=== PATIENT | male | born 1990 | race Caucasian/White ===

== ENCOUNTER 2017-06-16 19:54 | Emergency (ER) | payer OTHER, BC ==
[2017-06-16 19:56] VITALS: BP 132/84; PULSE 78; RESP 16; TEMP 98.2; O2SAT 98
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
[2017-06-16] MEDS ORDERED: ORPHENADRINE INJ 60 MG/2 ML AMP IM ONE (21:00)
[2017-06-16] MEDS ORDERED: KETOROLAC TROMETHAMINE 60 MG/2 ML (IM) VIAL IM ONE (21:00)
[2017-06-16 22:50] VITALS: RESP 18
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
[2017-06-16] MEDS ORDERED: BACL10TA PO (23:18)
[2017-06-16] MEDS ORDERED: IBUP800T23 PO (23:18)
== END 2017-06-16 23:33 | disposition home or self-care (01) ==
LOC: NEPK 19:54
DX: S39.012A Strain of muscle, fascia and tendon of lower back, initial encounter (principal); S80.211A Abrasion, right knee, initial encounter; S80.10XA Contusion of unspecified lower leg, initial encounter; V47.5XXA Car driver injured in collision with fixed or stationary object in traffic accident, initial encounter; Y92.410 Unspecified street and highway as the place of occurrence of the external cause
CPT/HCPCS: 73564; 73590; 96372; 99284; J1885; J2360

== ENCOUNTER 2017-10-14 18:34 | Emergency (ER) | payer BC ==
[~2017-10-14 18:34] MED LIST: BACL10TA PO; IBUP1TAB7 PO
[2017-10-14 18:36] VITALS: BP 118/78; PULSE 111; RESP 14; TEMP 99.8; O2SAT 96
[2017-10-14 18:57] VITALS: BP 121/74; PULSE 84; RESP 14; TEMP 98.6; O2SAT 96
--- NOTE | 2017-10-14 19:36 | PD ---
HPI Chief Complaint: Abdominal Pain Time Seen by Provider: 19:25 Travel History International Travel<30 days: No Contact w/Intl Traveler<30days: No Traveled to known affect area: No History of Present Illness HPI 26-year-old male presents for evaluation of abdominal pain, nausea, vomiting. He reports that woke up this morning with primarily right sided lower/upper/ epigastric abdominal pain which is sharp, constant, associated with multiple boluses of nonbloody emesis, some watery diarrhea as well. He endorses chills and myalgias. He denies dysuria, testicular or scrotal pain, flank pain. He does report that he has had back pain for several months and seems to be worse today as well. He denies cough, congestion, sore throat. He reports that he lives in [place] but works in [employer] [facility], traveled here from [place] [facility] [facility] this morning. He denies any dietary changes, new medications or recent antibiotic use. He reports that yesterday he ate 4 tacos and some milk and this is a typical diet for him. No history of abdominal surgeries. No other complaints. [facility] Past Medical History Medical History: Denies Significant Hx Immunizations Current: Yes Tetanus Vaccination: < 5 Years Influenza Vaccination: No Past Surgical History Surgical History: No Previous Surgery Social History Alcohol Use: Yes (rare) Tobacco Use: Yes (rare) Substance Use: No Allergies-Medications (Allergen,Severity, Reaction): Coded Allergies: No Known Allergies (Verified , 06/16/17) Reported Meds & Prescriptions Reported Meds & Active Scripts Active Naproxen 500 Mg Tab 500 Mg PO BID 7 Days Zofran (Ondansetron HCl) 4 Mg Tab 4 Mg PO Q6HR PRN Baclofen 10 Mg Tab 10 Mg PO Q8HR PRN 7 Days Ibuprofen 800 Mg Tab 800 Mg PO Q6HR PRN Review of Systems Except as stated in HPI: all other systems reviewed are Neg Physical Exam Narrative GENERAL: Well-developed well-nourished male who appears uncomfortable on initial examination. SKIN: Warm and dry. HEAD: Atraumatic. Normocephalic. EYES: Pupils equal and round. No scleral icterus. No injection or drainage. ENT: No nasal bleeding or discharge. Mucous membranes pink and moist. NECK: Trachea midline. No JVD. CARDIOVASCULAR: Regular rate and rhythm. No murmur appreciated. RESPIRATORY: No accessory muscle use. Clear to auscultation. Breath sounds equal bilaterally. GASTROINTESTINAL: Abdomen soft, there is tenderness to palpation in the epigastrium, right upper quadrant and right lower quadrant without guarding. There is no CVA tenderness. MUSCULOSKELETAL: No obvious deformities. No clubbing. No cyanosis. No edema. NEUROLOGICAL: Awake and alert. No obvious cranial nerve deficits. Motor grossly within normal limits. Normal speech. PSYCHIATRIC: Appropriate mood and affect; insight and judgment normal. Data Data Last Documented VS Vital Signs Date Time Temp Pulse Resp B/P (MAP) Pulse Ox O2 Delivery O2 Flow Rate FiO2 10/14/17 18:57 98.6 84 14 121/74 (90) 96 Room Air Orders Orders Complete Blood Count With Diff (10/14/17 19:33) Comprehensive Metabolic Panel (10/14/17 19:33) Lipase (10/14/17 19:33) Urinalysis - C+S If Indicated (10/14/17 19:33) Ct Abd/Pel W Iv Contrast(Rout) (10/14/17 19:33) Iv Access Insert/Monitor (10/14/17 19:33) Ecg Monitoring (10/14/17 19:33) Oximetry (10/14/17 19:33) Ondansetron Inj (Zofran Inj) (10/14/17 19:45) Sodium Chlor 0.9% 1000 Ml Inj (Ns 1000 M (10/14/17 19:33) Sodium Chloride 0.9% Flush (Ns Flush) (10/14/17 19:45) Iohexol 350 Inj (Omnipaque 350 Inj) (10/14/17 20:34) Pantoprazole Inj (Protonix Inj) (10/14/17 21:15) Dicyclomine Inj (Bentyl Inj) (10/14/17 21:15) Ketorolac Inj (Toradol Inj) (10/14/17 21:15) Al-Mag Hy-Si 40-40-4 Mg/Ml Liq (Mag-Al P (10/14/17 21:15) Lidocaine 2% Viscous (Xylocaine 2% Visco (10/14/17 21:15) Ed Discharge Order (10/14/17 21:50) Labs Laboratory Tests Test 10/14/17 20:00 10/14/17 20:54 White Blood Count 15.5 TH/MM3 Red Blood Count 5.47 MIL/MM3 Hemoglobin 16.7 GM/DL Hematocrit 49.4 % Mean Corpuscular Volume 90.4 FL Mean Corpuscular Hemoglobin 30.5 PG Mean Corpuscular Hemoglobin Concent 33.7 % Red Cell Distribution Width 13.8 % Platelet Count 317 TH/MM3 Mean Platelet Volume 8.4 FL Neutrophils (%) (Auto) 92.1 % Lymphocytes (%) (Auto) 2.7 % Monocytes (%) (Auto) 4.9 % Eosinophils (%) (Auto) 0.2 % Basophils (%) (Auto) 0.1 % Neutrophils # (Auto) 14.3 TH/MM3 Lymphocytes # (Auto) 0.4 TH/MM3 Monocytes # (Auto) 0.8 TH/MM3 Eosinophils # (Auto) 0.0 TH/MM3 Basophils # (Auto) 0.0 TH/MM3 CBC Comment DIFF FINAL Differential Comment Blood Urea Nitrogen 12 MG/DL Creatinine 0.99 MG/DL Random Glucose 96 MG/DL Total Protein 9.0 GM/DL Albumin 4.3 GM/DL Calcium Level 8.8 MG/DL Alkaline Phosphatase 84 U/L Aspartate Amino Transf (AST/SGOT) 33 U/L Alanine Aminotransferase (ALT/SGPT) 29 U/L Total Bilirubin 1.2 MG/DL Sodium Level 136 MEQ/L Potassium Level 4.6 MEQ/L Chloride Level 104 MEQ/L Carbon Dioxide Level 24.5 MEQ/L Anion Gap 8 MEQ/L Estimat Glomerular Filtration Rate 92 ML/MIN Lipase 134 U/L Urine Color YELLOW Urine Turbidity CLEAR Urine pH 6.0 Urine Specific [place] GREATER THAN 1.050 Urine Protein TRACE mg/dL Urine Glucose (UA) NEG mg/dL Urine Ketones 10 mg/dL Urine Occult Blood NEG Urine Nitrite NEG Urine Bilirubin NEG Urine Urobilinogen LESS THAN 2.0 MG/DL Urine Leukocyte Esterase NEG Urine RBC LESS THAN 1 /hpf Urine WBC LESS THAN 1 /hpf Urine Squamous Epithelial Cells 1 /hpf Urine Mucus FEW /lpf Microscopic Urinalysis Comment CULT NOT INDICATED MDM Medical Decision Making Medical Screen Exam Complete: Yes Emergency Medical Condition: Yes Medical Record Reviewed: Yes Differential Diagnosis Gastroenteritis, gastritis, pancreatitis, biliary colic, cholecystitis, colitis , diverticulitis, appendicitis, pyelonephritis Narrative Course 26-year-old male with one-day history of chills, abdominal pain, nausea, vomiting, diarrhea. On examination he has diffuse tenderness, particularly on the right side of his abdomen. Plan is to receive lab work, CT abdomen and pelvis, urinalysis. He was given IV fluids, Zofran, Toradol, GI cocktail, Bentyl, Protonix. Laboratory notable for WBC, 15.5, total bilirubin 1.2, 10 ketones on urinalysis. Lab work is otherwise unremarkable. CT abdomen and pelvis is unremarkable. Upon reexamination the patient is feeling significantly improved. Toradol helped with his back pain. Suspect gastroenteritis. The patient will be discharged with a short course of naproxen for his chronic back pain as well as Zofran for his nausea. Discussed signs and symptoms that would warrant returning to the emergency room. He is stable for discharge. Diagnosis Primary Impression: Gastroenteritis Additional Instructions: Slowly advance diet as tolerated. Medication as prescribed. Return for any acutely new or worsening symptoms. Med/Other Pt SpecificInfo: Prescription(s) given Scripts Naproxen (Naproxen) 500 Mg Tab 500 MG PO BID for 7 Days, #14 TAB 0 Refills Prov: Herlinda Keen MD 10/14/17 Ondansetron (Zofran) 4 Mg Tab 4 MG PO Q6HR Y for NAUSEA OR VOMITING, #20 TAB 0 Refills Prov: Herlinda Keen MD 10/14/17 Disposition: 01 DISCHARGE HOME Condition: Stable Nabil Montero Oct 14, 2017 19:36
[2017-10-14] MEDS ORDERED: SODIUM CHLORIDE 0.9% FLUSH 10 ML FLUSH IV FLUSH PRN (19:45)
[2017-10-14] MEDS: SODIUM CHLOR 0.9% 1000 ML INJ 1,000 ML IV SCH ×2 (19:46→19:54)
[2017-10-14] MEDS: ONDANSETRON HCL 4 MG/2 ML VIAL IVP ONE ×2 (19:46→19:54)
--- NOTE | 2017-10-14 20:29 | PD ---
Physical Exam Date Seen by Provider: Oct 14, 2017 Narrative This patient presents with the acute onset of abdominal pain. Data Data Last Documented VS Vital Signs Date Time Temp Pulse Resp B/P (MAP) Pulse Ox O2 Delivery O2 Flow Rate FiO2 10/14/17 18:57 98.6 84 14 121/74 (90) 96 Room Air Orders Orders Complete Blood Count With Diff (10/14/17 19:33) Comprehensive Metabolic Panel (10/14/17 19:33) Lipase (10/14/17 19:33) Urinalysis - C+S If Indicated (10/14/17 19:33) Ct Abd/Pel W Iv Contrast(Rout) (10/14/17 19:33) Iv Access Insert/Monitor (10/14/17:33) Ecg Monitoring (10/14/17:33) Oximetry (10/14/17:33) Ondansetron Inj (Zofran Inj) (10/14/17 19:45) Sodium Chlor 0.9% 1000 Ml Inj (Ns 1000 M (10/14/17 19:33) Sodium Chloride 0.9% Flush (Ns Flush) (10/14/17 19:45) MDM Supervised Visit with AISHA: Yes Narrative Course I, Dr. Keen, have reviewed the advance practice practitioner's documentation and am in agreement, met with the patient face to face, made the diagnosis, and the medical decision making was done by me. *My assessment and Findings: The patient doesn't look like he feels very well. His abdomen is diffusely tender. CT and routine labs are pending. Please see Nabil Montero PA-C's note for results of laboratory and radiographic evaluation, ED course, final diagnosis and disposition Herlinda Keen MD Oct 14, 2017 20:29
[2017-10-14] MEDS ORDERED: IOHEXOL 350 MG/ML 10 ML VIAL (for RAD DIAG) IVCONTRAST ONE (20:34)
[2017-10-14 20:50] LABS: AUTOMATED NEUTROPHIL # 14.3 TH/MM3 (1.8-7.7); BASOPHIL % 0.1 % (0.0-2.0); EOSINOPHIL % 0.2 % (0.0-4.0); HEMATOCRIT 49.4 % (39.0-51.0); HEMOGLOBIN 16.7 GM/DL (13.0-17.0); LYMPH % 2.7 % (9.0-44.0); LYMPHOCYTE # 0.4 TH/MM3 (1.0-4.8); MEAN CELL VOLUME 90.4 FL (80.0-100.0); MEAN CORPUSCULAR HEMOGLOBIN 30.5 PG (27.0-34.0); MEAN CORPUSCULAR HGB CONC 33.7 % (32.0-36.0); MEAN PLATELET VOLUME 8.4 FL (7.0-11.0); MONO % 4.9 % (0.0-8.0); MONOCYTE # 0.8 TH/MM3 (0-0.9); NEUT % 92.1 % (16.0-70.0); PLATELET COUNT 317 TH/MM3 (150-450); RED BLOOD COUNT 5.47 MIL/MM3 (4.50-5.90); RED CELL DISTRIBUTION WIDTH 13.8 % (11.6-17.2); WHITE BLOOD COUNT 15.5 TH/MM3 (4.0-11.0)
--- NOTE | 2017-10-14 20:51 | RADRPT ---
EXAM DATE/TIME: 10/14/2017 20:28 [facility] COMPARISON: No previous studies available for comparison. INDICATIONS : Abdomen pain; fever. IV CONTRAST: 90 cc Omnipaque 350 (iohexol) IV ORAL CONTRAST: No oral contrast ingested. RADIATION DOSE: 10.12 CTDIvol (mGy) MEDICAL HISTORY : None SURGICAL HISTORY : None. ENCOUNTER: Initial ACUITY: 1 day PAIN SCALE: 7/10 LOCATION: Bilateral abdomen TECHNIQUE: Volumetric scanning of the abdomen and pelvis was performed. Using automated exposure control and ad justment of the mA and/or kV according to patient size, radiation dose was kept as low as reasonably achievable to obtain optimal diagnostic quality images. DICOM format image data is available electro nically for review and comparison. FINDINGS: LOWER LUNGS: The visualized lower lungs are clear. LIVER: Homogeneous density without lesion. There is no dilation of the biliary tree. No calcified gallston es. SPLEEN: Normal size without lesion. PANCREAS: Within normal limits. KIDNEYS: Normal in size and shape. There is no mass, stone or hydronephrosis. ADRENAL GLANDS: Within normal limits. VASCULAR: There is no aortic aneurysm. BOWEL/MESENTERY: The stomach, small bowel, and colon demonstrate no acute abnormality. There is no free intraperitone al air or fluid. Normal appendix. ABDOMINAL WALL: Within normal limits. RETROPERITONEUM: There is no lymphadenopathy. BLADDER: No wall thickening or mass. REPRODUCTIVE: Within normal limits. INGUINAL: There is no lymphadenopathy or hernia. MUSCULOSKELETAL: Within normal limits for patient age. CONCLUSION: Negative CT of the abdomen and pelvis. Kaz Arthur MD on October 14, 2017 at 20:48 Board Certified Radiologist. This report was verified electronically.
[2017-10-14 21:07] LABS: ALT (GPT) 29 U/L (12-78)
[2017-10-14 21:09] LABS: ALBUMIN 4.3 GM/DL (3.4-5.0); ALKALINE PHOSPHATASE 84 U/L (45-117); AST (GOT) 33 U/L (15-37); BICARBONATE 24.5 MEQ/L (21.0-32.0); BLOOD UREA NITROGEN 12 MG/DL (7-18); CALCIUM 8.8 MG/DL (8.5-10.1); CHLORIDE 104 MEQ/L (98-107); CREATININE 0.99 MG/DL (0.60-1.30); GLOMERULAR FILTRATION RATE 92 ML/MIN (>89); GLUCOSE,RANDOM 96 MG/DL (74-106); LIPASE 134 U/L (73-393); SODIUM (NA) 136 MEQ/L (136-145); TOTAL BILIRUBIN ADULT 1.2 MG/DL (0.2-1.0)
[2017-10-14] MEDS ORDERED: KETOROLAC TROMETHAMINE 30 MG/ML (IVP) VIAL IVP ONE (21:15)
[2017-10-14] MEDS ORDERED: PANTOPRAZOLE SODIUM 40 MG VIAL IVP ONE (21:15)
[2017-10-14] MEDS ORDERED: LIDOCAINE VISCOUS 2% SOLN 15 ML UDC PO ONE (21:15)
[2017-10-14] MEDS ORDERED: DICYCLOMINE HCL 20 MG/2 ML VIAL IM ONE (21:15)
[2017-10-14] MEDS ORDERED: ALUMINUM/MAGNESIUM/SIMETH 30 ML CUP PO ONE (21:15)
[2017-10-14 21:27] LABS: BILIRUBIN, URINE NEG (NEG); BLOOD, URINE NEG (NEG); GLUCOSE,URINE NEG (NEG); KETONE, URINE 10 mg/dL (NEG); MUCUS URINE FEW /lpf (OCC); NITRITE,URINE NEG (NEG); SQUAMOUS EPITHELIAL CELL URINE 1 /hpf (0-5); URINE COLOR YELLOW (YELLW/STRAW); URINE LEUKOCYTE ESTERASE NEG (NEG)
[2017-10-14] MEDS ORDERED: ZOFR4TAB PO (21:50)
[2017-10-14] MEDS ORDERED: NAPR500T2 PO (21:50)
== END 2017-10-14 22:20 | disposition home or self-care (01) ==
LOC: NEPD 18:34
DX: K52.9 Noninfective gastroenteritis and colitis, unspecified (principal); Z72.0 Tobacco use
CPT/HCPCS: 74177; 80053; 81001; 83690; 85025; 96361; 96372; 96374; 96375; 99285; C9113; J0500; J1885; J2405; J7030; Q9967